=== PATIENT | male | born 1980 | race Caucasian/White ===

== ENCOUNTER 2024-08-19 19:21 | Emergency (ER) | payer OTHER, SELFPAY ==
[2024-08-19 19:37] VITALS: BP 126/82; PULSE 70; RESP 18; TEMP 36.8; O2SAT 99; BMI 23.8
--- NOTE | 2024-08-19 19:37 | ED_ITS ---
HPI - General Adult General Time Seen by Provider: 19:37 Date Seen: 08/19/24 Chief complaint: Animal Bite Stated complaint: Bat exposure Time Seen by Provider: 08/19/24 19:30 Source: patient, family and RN notes reviewed Mode of arrival: ambulatory Limitations: no limitations History of Present Illness HPI narrative: This 44-year-old male is coming in with his family with a bat exposure. His was reportedly working from home on her computer in a meeting last week, maybe Monday or , when the dog started going ballistic. His eventually walked out, thought she saw something flying but then could not find it. She was not sure maybe she really did visualize what she thought was a bird. When her got home, every but he looked but they could not find any bird in the house, the dog had settle down. He was getting up this morning to play pickleball at 4:30 a.m., felt a whooshing above him. He turned on the light and did not see anything. He went in to 1 of his children's room and found a bat flying. The bat reportedly got into a couple kids rooms before he caught it. He did catch it and then they released it outside. He has never had any rabies vaccination or exposure before nor has anyone in the family. No known bite jackson. Related Data Home Medications ?Medication ?Instructions ?Recorded ?Confirmed No Known Home Medications 08/19/24 08/19/24 Review of Systems Narrative: As per HPI. Exam Const: Vital Signs, click to edit/add: Vital Signs - 24 hr 08/19/24 19:37 Temperature 98.2 F Pulse Rate [Right Pulse Oximeter] 70 Respiratory Rate 18 Blood Pressure [Le ft Upper Arm] 126/82 Pulse Oximetry 99 Oxygen Delivery Me thod Room Air 44-year-old male that is alert, interact saima, ambulatory into the ED and well kept. Documenting provider has reviewed patient's vital signs: yes Course Course ED Course: Have reviewed with patient that this would qualify them all for rabies imm unoglobulin and rabies vaccine for post exposure prophylaxis. The bat cannot be tested. The bat obviously has been in the house for days. We talked to Santos sahni, did review with him that we are checking in her pharmacy to see exactly how many rabies vaccines and how much rabies immune globulin we have. We may not have enough to do the full family tonight in given that the exposure did not just happen, could have potentially happened over days, I do think that they probably should initiate this evening. He understands that some of the may have to proceed to another emergency room, we can theoretically call head and see where there is enough medication. Reevaluation(s) Time of Reevaluation #1: 20:36 Reevaluation #1: Did find out from [address] that they will not allow me to send in orders for 3 rabies vaccines. Will allow dad, mom and 1 child to decline services. Dad will not be charged for this visit. If they decide that they do want to do their follow-up rabies vaccines here, have asked them to contact us tomorrow so we can work with pharmacy to make sure we can do that. Vital Signs Vital signs: Initial Vital Signs Temperature 98.2 F 08/19/24 19:37 Temperature Source Temporal Artery Scan 08/19/24 19:37 Pulse Rate 70 08/19/24 19:37 Respiratory Rate 18 08/19/24 19:37 Blood Pressure 126/82 08/19/24 19:37 Blood Pressure Mean 96 08/19/24 19:37 Blood Pressure Position Sitting 08/19/24 19:37 Pulse Oximetry 99 08/19/24 19:37 Oxygen Delivery Method Room Air 08/19/24 19:37 Vital Signs Temperature 98.2 F 08/19/24 19:37 Pulse Rate 70 08/19/24 19:37 Respiratory Rate 18 08/19/24 19:37 Blood Pressure 126/82 08/19/24 19:37 Pulse Oximetry 99 08/19/24 19:37 Oxygen Delivery Method Room Air 08/19/24 19:37 Temperature 98.2 F 08/19/24 19:37 Pulse Rate 70 08/19/24 19:37 Respiratory Rate 18 08/19/24 19:37 Blood Pressure 126/82 08/19/24 19:37 Pulse Oximetry 99 08/19/24 19:37 Oxygen Delivery Method Room Air 08/19/24 19:37 Discharge Plan Discharge Clinical Impression: Exposure to bat without known bite Additional Instructions: Proceed to [address] to receive your rabies vaccine and rabies immunoglobulin. Prescriptions: No Action No Known Home Medications
--- OUTSIDE RECORDS SUMMARY | 2024-08-19 20:43 | XMS_ITS | Clinical Summary ---
Author Organization Media Address [address] [place] [id number] Care Team Providers Care Angle Shear Set Up Operator Name Role Phone [facility] Primary Care Provider Allergies No known active allergies Medications prednisoLONE acetate, patient own, no charge, (PRED FORTE) 1 % ophthalmic suspension Place 1 drop Into the left eye every 2 hours Active ketorolac (TORADOL) 10 MG tabletIndicatio ns:Ureteral stone Take 1 tablet (10 mg) by mouth every 6 hours as needed for moderate pain (4-6) 20 tablet 2 Active tamsulosin (FLOMAX) 0.4 MG capsuleIndicati ons:Ureteral stone Take 1 capsule (0.4 mg) by mouth daily 21 capsule 2 Active oxyCODONE (ROXICODONE) 5 MG tabletIndicatio ns:Ureteral stone Take 1 tablet (5 mg) by mouth once as needed for breakthrough pain 10 tablet 2 Active Social History Tobacco Use Types Packs/Day Years Used Date Smoking Tobacco: Never Smokeless Tobacco: Never Tobacco Cessation:Counseling Given: Not Answered Alcohol Use Standard Drinks/Week Comments Not Currently 0 (1 standard drink = 0.6 oz pur e alcohol) Adolescent Education Answer Date Record ed Getting School Help Needed Not on file 06/03 Sex and Gender Information Value Date Recorded Sex Assigned at Not on file Legal Sex Male 3:06 PM MEDIEVAL ENGLISH LITERATURE PROFESSOR Gender Identity Not on file Sexual Orientation Not on file Last Filed Vital Signs Vital Sign Reading Time Taken Comments Blood Pressure 93/66 07/22/2022 12:45 PM MEDIEVAL ENGLISH LITERATURE PROFESSOR Pulse 53 07/22/2022 12:45 PM MEDIEVAL ENGLISH LITERATURE PROFESSOR Temperature 36.1 C (97 F) 07/22/2022 12:45 PM MEDIEVAL ENGLISH LITERATURE PROFESSOR Respiratory Rate 18 07/22/2022 12:45 PM MEDIEVAL ENGLISH LITERATURE PROFESSOR Oxygen Saturation 98% 07/22/2022 12:45 PM MEDIEVAL ENGLISH LITERATURE PROFESSOR Inhaled Oxygen Concentration - - Weight 73.7 kg (162 lb 6.4 oz) 07/22/2022 7:40 A M MEDIEVAL ENGLISH LITERATURE PROFESSOR Height 175.3 cm (5' 9) 07/22/2022 7:40 AM MEDIEVAL ENGLISH LITERATURE PROFESSOR Body Mass Index 23.98 07/22/2022 7:40 AM MEDIEVAL ENGLISH LITERATURE PROFESSOR Plan of Treatment Health Maintenance Due Date Last Done Comments ADVANCE CARE PLANNING 1982 ANNUAL REVIEW OF HM ORDERS 1982 GLUCOSE 1982 YEARLY PREVENTIVE VISIT 1982 HIV SCREENING 1997 HEPATITIS C SCREENING 2000 HEPATITIS B IMMUNIZATION (1 of 3 - 19+ 3-dose series) 2001 LIPID 2022 DTAP/TDAP/TD IMMUNIZATION (2 - Td or Tdap) 07/26/2023 07/26/2013 PHQ-2 (once per calendar year) 2023 COVID-19 Vaccine ( season) 2024 05/28/2022, 08/06/2021, 01/07/2021, Additional history exists INFLUENZA VACCINE (#1) 2024 , 07/08/2020, 07/25/2019, Additional history exists RSV VACCINE (1 - 1-dose 75+ series) 2057 HPV IMMUNIZATION Aged Out No longer e ligible based on patient's age to complete this topic MENINGITIS IMMUNIZATION Aged Out No l onger eligible based on patient's age to complete this topic Pneumococcal Vaccine: Pediatrics (0 to 5 Years) and At-Risk Patients (6 to 64 Years) Aged Out No longer eligible based on patient's age to complete this topic RSV MONOCLONAL ANTIBODY Aged Out No l onger eligible based on patient's age to complete this topic Medical Devices Implanted Type Area Cellophane Bath Mixer Device Identifier Shelf Expiration Date Model / Serial / Lot Stent Ureteral Polaris Ultra [id number] Implanted:Qty : 1 on 10/09/2020 by Bryant Grier MD at [facility] Stent Left: Ureter [facility] [id number] 07/20/2023 [id number] [place] Care Teams Angle Shear Set Up Operator Relationship Specialty Start Date End Date [facility], [address] [address] PCP - General 10/05/20
--- OUTSIDE RECORDS SUMMARY | 2024-08-19 20:43 | XMS_ITS | Referral Summary ---
Author Organization [facility] Address [address] [place] [id number] Care Team Providers Care Truckman Name Role Phone [facility] Primary Care Provider Allergies No known active [...] on file Legal Sex Male 3:06 PM OPERATIONS REPRESENTATIVE Gender Identity Not on file Sexual Orientation Not on file Last Filed Vital Signs Vital Sign Reading Time Taken Comments Blood Pressure 93/66 07/22/2022 12:45 PM OPERATIONS REPRESENTATIVE Pulse 53 07/22/2022 12:45 PM OPERATIONS REPRESENTATIVE Temperature 36.1 C (97 F) 07/22/2022 12:45 PM OPERATIONS REPRESENTATIVE Respiratory Rate 18 07/22/2022 12:45 PM OPERATIONS REPRESENTATIVE Oxygen Saturation 98% 07/22/2022 12:45 PM OPERATIONS REPRESENTATIVE Inhaled Oxygen Concentration - - Weight 73.7 kg (162 lb 6.4 oz) 07/22/2022 7:40 A M OPERATIONS REPRESENTATIVE Height 175.3 cm (5' 9) 07/22/2022 7:40 AM OPERATIONS REPRESENTATIVE Body Mass Index 23.98 07/22/2022 7:40 AM OPERATIONS REPRESENTATIVE Plan of Treatment Not on file Medical Devices Implanted Type Area Golf Course Designer Device Identifier Shelf Expiration Date Model / Serial / Lot Stent Ureteral Polaris Ultra [id number] Implanted:Qty : 1 on 10/09/2020 by Bryant Grier MD at [facility] Stent Left: Ureter [employer] [id number] 07/20/2023 [id number] 20 / [id number] [place] Care Teams Truckman Relationship Specialty Start Date End Date [address] [address] PCP - General 10/05/20
--- OUTSIDE RECORDS SUMMARY | 2024-08-19 20:43 | XMS_ITS | Clinical Summary ---
Author Organization [facility] Address [place], [place] [address] Care Team Providers Care Racing Car Driver Name Role Phone None Primary Care Provider Unavailabl e Allergies No known active allergies Medications glucosamine/cho ndr pearl A sod (Glucosamine-Ch ondroitin) 750-600 mg tabIndications: Hip pain, right Take 1 Tablet by mouth two times daily. 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 11/2017 Kidney stone 02/11/2018 Metabolic acidosis 02/11/2018 Lactic acidosis 02/11/2018 Resolved Problems Problem Noted Date Diagnosed Date Resolved Date Hematuria 02/11/2018 04/04/2018 Encounters Date Type Department Care Team Description 08/19/2024 11:10 AM ELEMENT SETTER Telemedicine [facility] [address] [place] [phone] Rimma Cordero NP Animal Bite 08/19/2024 Travel 08/06/2024 3:05 PM ELEMENT SETTER Nurse/Clinic Staff Only [facility] [address] [place] [address] Immunization/Inject ion 08/06/2024 Travel from Last 3 Months Immunizations Name Administration Dates Next Due AMB Influenza, IIV3 (Age >=3 years)(Flu Clinic Only) 06/27/2013 AMB Influenza, IIV4 PF (=>6 mos Flulaval,Fluzone Fluarix)(Flu Clinic Only) 07/25/2019,06/23/2018,07/20/2015, 0 14 COVID-19 VACCINE SPIKEVAX (M ODERNA 50MCG/0.5ML) 12YO+ PFS 08/06/2024 COVID-19 vaccine (Pfizer-Bio NTech 30mcg/0.3mL) PF, MDV 08/06/2021,01/07/2021,12/16/2020 INFLUENZA, IIV3 PF (AGE >= 6 MO) 08/06/2024 Influenza, IIV3 (Age >=3 years) 07/01/20 21,06/27/2013,07/30/2010,07/30/20 08 Influenza, IIV4 07/08/2020, 6,07/20/2015,07/07/20 14 Influenza,CCIIV4 PRESERV FREE 07/17/2023, 022 Tdap 07/26/2013 Family History Medical History Relation Name Comments Good Health Brother Hypertension Father Nephrolithiasis Father Arthritis Mother knees Hyperlipidemia Mother Good Health Sister Anesthesia Malignant Hyperthermia No Family History Anesthesia Problem No Family History Relation Name Status Comments Brother Father Mother Sister Social History Tobacco Use Types Packs/Day Years Used Date Smoking Tobacco: Never Smokeless Tobacco: Never Tobacco Cessation:Counseling Given: Yes Alcohol Use Standard Drinks/Week Comments No 0 (1 standard drink = 0.6 oz pur e alcohol) PHQ-2 Answer Date Recorded PHQ-2 TOTAL SCORE 0 10/06/2020 Social Connections Answer Date Recorded Frequency of Communication with Friends and Fami ly Not on file 09/09/2021 Financial Resource Strain Answer Date R ecorded Difficulty of Paying Living Expenses Not on file 09/09/2021 Difficulty of Paying Living Expenses Not on file 09/09/2021 Sex and Gender Information Value Date Recorded Sex Assigned at Not on file Legal Sex Male 7:24 AM ELEMENT SETTER Gender Identity Male 03/31/2021 2:55 PM CDT Sexual Orientation Straight 03/31/2021 2: 55 PM CDT 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 file Not on file Not on file Obstetrics History Last Filed Vital Signs Vital Sign Reading Time Taken Comments Blood Pressure 118/62 07/21/2022 11:32 AM ELEMENT SETTER Pulse 82 07/21/2022 11:32 AM ELEMENT SETTER Temperature 36.4 C (97.5 F) 04/21/2021 10:40 AM CDT Respiratory Rate 18 10/06/2020 12:2 4 PM ELEMENT SETTER Oxygen Saturation 100% 07/12/2022 11: 05 AM CDT Inhaled Oxygen Concentration - - Weight 73.3 kg (161 lb 11.2 oz) 022 11:32 AM ELEMENT SETTER Height 175.3 cm (5' 9) 07/12/2022 11:0 5 AM CDT Body Mass Index 23.88 07/12/2022 11:05 AM CDT Plan of Treatment Health Maintenance Due Date Last Done Comments HIV for age 15-65 1997 Hepatitis C screening for age 18-79 2000 Lipids for age 35-44 02/11/2021 02/12/2016, 05/15/20 07 Depression screening for age 12+ 10/06/2021 10/06/2020, 03/21/2019, 04/04/2018, Additional history exists BMI (ht and wt on same day) for age 18+ 07/12/2023 07/12/2022, 10/06/2020, 03/21/2019, Additional history exists Tetanus booster 07/26/2023 07/26/2013 Tdap Completed 07/26/2013 COVID-19 vaccine series Completed 08/06/20 24, 07/17/2023, 05/28/2022, Additional history exists Influenza for age 9-49 Completed 4, 07/17/2023, 07/24/2022, Additional history exists Pneumococcal series for age 6-64 Aged Out No longer eligible based on patient's age to complete this topic Medical Devices Implanted Type Area Construction Field Engineer Device Identifier Shelf Expiration Date Model / Serial / Lot Stent Uret [id number] Contour - [id number] Implanted:Qty: 1 on 02/12/2018 by Don Salmon MD at [facility] Right: Ureter [facility] 11/27/2020 [id number] / / [id number] Procedures Procedure Name Priority Date/Time Associated Diagnosis Comments LIPID PANEL W REFLEX MEASURED LDL Routine 02/12/2016 9:08 AM CDT Lipid screening from Last 3 Months or Most Recently Relevant to Health Maintenance Results * (ABNORMAL) LIPID PANEL W REFLEX MEASURED LDL (02/12/2016 9:08 AM CDT) CHOLESTEROL,TOTAL 144 100 - 199 mg/dL 02/12/2016 9:40 AM CDT [facility] TRIGLYCERIDES 117 <150 mg/dL 02/12/2016 9:40 AM CDT [facility] HDL CHOLESTEROL 33(L) >40 mg/dL 02/12/2016 9:40 AM CDT [facility] NON-HDL CHOLESTEROL 111 <145 mg/dl 02/12/2016 9:40 AM CDT [facility] CHOL/HDL RATIO 4.36 <4.50 02/12/2016 9:40 AM CDT [facility] LDL CHOLESTEROL 88 <=130 mg/dL 02/12/2016 9:40 AM CDT [facility] PATIENT STATUS FASTING 02/12/2016 9:40 AM CDT [facility] Blood specimen (specimen) BLOOD SPECIMEN / Unknown Venipuncture / Unknown 02/12/2016 9:08 AM CDT 02/12/2016 9:08 AM CDT Ronak Walker MD CHEMISTRY Final Re sult [facility] [address] [place] [address], [place] [phone] from Last 3 Months or Most Recently Relevant to Health Maintenance Insurance [address] [place] [id number] [employer] [facility] Advance Directives * Full Code (Latest Code Status on File) Date Activated Date Inactivated Comments 02/10/2018 11:57 PM 02/13/2018 2:08 PM Care Teams Racing Car Driver Relationship Specialty Start Date End Date None . PCP - General 08/06/24
[2024-08-19 20:46] VITALS: BP 126/82; PULSE 70; RESP 18; TEMP 36.8
== END 2024-08-19 20:47 | disposition home or self-care (01) ==
LOC: ED 20:42
PROVIDERS: Emergency Provider Family Medicine
DX: Z20.3 Contact with and (suspected) exposure to rabies (principal)
CPT/HCPCS: 99282

== ENCOUNTER 2024-09-02 14:12 | Outpatient (RCR) | payer OTHER, SELFPAY ==
[2024-08-22] MEDS: RABIES VACCINE (RABAVERT) 2.5 UNIT IM (16:37)
[2024-08-22 16:56] VITALS: RESP 18
[2024-08-26 16:01] VITALS: BP 108/71; PULSE 75; RESP 16; TEMP 36.9; O2SAT 97
[2024-08-26] MEDS: RABIES VACCINE (RABAVERT) 2.5 UNIT IM (16:19)
[2024-09-02 14:34] VITALS: BP 108/73; PULSE 63; RESP 16; TEMP 36.8; O2SAT 98
[2024-09-02] MEDS: RABIES VACCINE (RABAVERT) 2.5 UNIT IM (14:50)
== END 2024-09-02 14:53 | disposition home or self-care (01) ==
PROVIDERS: PCP Family Medicine; Visit Provider Family Medicine
DX: Z20.3 Contact with and (suspected) exposure to rabies (principal); Z23 Encounter for immunization
CPT/HCPCS: 80307; 90471; 90675